=== PATIENT | female | born 1995 | race Hispanic/Latino ===

== ENCOUNTER 2017-09-10 15:43 | Outpatient (CLI) | payer OTHER, MEDICAID ==
[2017-09-10] MEDS ORDERED: CELESTONE SOLUSPAN IM ONE ×2 (16:30→16:53)
== END 2017-09-10 17:08 | disposition home or self-care (01) ==
LOC: TRG 15:43
PROVIDERS: ATTEND Obstetrics & Gynecology
DX: O47.03 False labor before 37 completed weeks of gestation, third trimester (principal); Z3A.29 29 weeks gestation of pregnancy
CPT/HCPCS: 96372; J0702

== ENCOUNTER 2017-09-11 14:21 | Inpatient (IN) | payer OTHER, MEDICAID ==
[2017-09-11] MEDS ORDERED: LACTATED RINGERS 500 ML IV ONE (15:36)
--- NOTE | 2017-09-11 16:51 | Ultrasound Report ---
FINAL REPORT EXAM: US OB BPP WO NON-STRESS HISTORY: decreased movement TECHNIQUE: Biophysical profile PRIORS: None currently available. FINDINGS: heart rate: 137 BPM Breathin Gross Body Movements: 0 Tone: 0 Qualitative AFV: 2 IMPRESSION: Biophysical profile score 2/8. Fritz level II finding report initiated.
--- NOTE | 2017-09-11 16:54 | Ultrasound Report ---
FINAL REPORT EXAM: US OB LIMITED HISTORY: decreased movement TECHNIQUE: Transabdominal OB ultrasound. PRIORS: None currently available. FINDINGS: Single intrauterine Presentation: Cephalic. Placenta: Anterior and fundal. Grade 0. No previa. heart rate: 131 BPM. Amniotic fluid index: 9.0 cm. Within normal limits. IMPRESSION: Single live intrauterine .
[2017-09-11] MEDS ORDERED: CELESTONE SOLUSPAN IM ONE (17:00)
[2017-09-11] MEDS ORDERED: REGLAN IV ONE (17:11)
[2017-09-11] MEDS ORDERED: REGLAN ONE (17:11)
[2017-09-11] MEDS ORDERED: PITOCin/NS 20 UNIT/1000ML DRIP 20,000 MILLIUNITS/1,000 ML BAG IV ONE (17:11)
[2017-09-11] MEDS ORDERED: PEPCID IV ONE ×2 (17:12→18:00)
[2017-09-11] MEDS ORDERED: ANCEF/STERILE WATER 2 GM/20 ML 2 GM/20 ML SYRINGE IV ONE (17:12)
[2017-09-11] MEDS ORDERED: BICITRA ONE (17:12)
[2017-09-11 17:25] LABS: Basophils % (Auto) 0.8 % (0.0-1.8); Eosinophils % (Auto) 0.2 % (0.0-4.3); Hematocrit 38.3 % (30.3-42.9); Mean Corpuscular HGB Conc 34 % (30-34); Mean Corpuscular Hemoglobin 30 pg (28-32); Mean Corpuscular Volume 89 fl (79-97); Platelet Count 235 K/mm3 (140-440); Red Cell Distribution Width 13.4 % (13.2-15.2); White Blood Count 15.1 K/mm3 (4.5-11.0)
--- NOTE | 2017-09-11 17:31 | Anesthesia Consultation ---
Anesthesia Consult and Med Hx Date of service: 09/11/17 - Airway Anesthetic Teeth Evaluation: Good ROM Head & Neck: Adequate Mental/Hyoid Distance: Adequate Mallampati Class: Class III Intubation Access Assessment: Possibly Difficult - Pulmonary Exam CTA: Yes - Cardiac Exam Cardiac Exam: RRR - Pre-Operative Health Status ASA Pre-Surgery Classification: ASA3, Emergency Proposed Anesthetic Plan: Epidural, Spinal - Pulmonary Hx Asthma: No - Cardiovascular System Hx Hypertension: Yes (PIH on lebetalol) - Central Nervous System Hx Seizures: No Hx Psychiatric Problems: No - Endocrine Hx Renal Disease: No Hx Hypothyroidism: No Hx Hyperthyroidism: No - Hematic Hx Anemia: No Hx Sickle Cell Disease: No - Other Systems Hx Alcohol Use: No
--- NOTE | 2017-09-11 17:32 | Anesthesia Day of Surgery ---
Anesthesia Day of Surgery - Day of Surgery Patient Examined: Yes Patient H&P Reviewed: Yes Patient is NPO: Yes Beta Blockers: Yes
[2017-09-11] MEDS ORDERED: BICITRA PO SCH (18:00)
[2017-09-11] MEDS ORDERED: PITOCin/NS 20 UNIT/1000ML DRIP 20 UNITS/1,000 ML BAG IV SCH ×2 (18:00→19:00)
[2017-09-11] MEDS ORDERED: LACTATED RINGERS 1,000 ML IV SCH (18:00)
[2017-09-11] MEDS ORDERED: ANCEF/STERILE WATER 2 GM/20 ML 2 GM/20 ML SYRINGE IV NR (18:00)
--- NOTE | 2017-09-11 18:04 | History and Physical Report ---
History of Present Illness Date of examination: 09/11/17 Date of admission: 09/11/17 17:16 Chief complaint: decreased movements History of present illness: 21y/o @ 29+2 weeks presents with decreased movement all day. The patient is being followed for abnormal umbilical dopplers and oligohydramnios. She received IM steroids yesterday and was scheduled for her 2nd injection today. She denies leakage of fluid or vaginal bleeding. She denies any regular uterine contractions. BPP performed was 8. +2 for fluid. The patient was counseled for a delivery. Past History Past Medical History: no pertinent history Past Surgical History: no surgical history Social history: single - Obstetrical History Expected Date of Delivery: 11/25/17 Actual Gestation: 29 Week(s) 2 Day(s) : 2 Para: 1 Hx # Term Pregnancies: 0 Number of Pregnancies: 1 Spontaneous Abortions: 0 Induced : 0 Number of Living Children: 1 Medications and Allergies Allergies Allergy/AdvReac Type Severity Reaction Status Date / Time No Known Allergies Allergy Unverified 10/31/14 10:30 Active Meds: Active Medications Citric Acid/Sodium Citrate (Bicitra) 30 ml PO ONCE JERMAN Stop: 09/12/17 17:59 Last Admin: 09/11/17 17:38 Dose: 30 ml Famotidine (Pepcid) 20 mg IV ONCE ONE Stop: 09/11/17 18:01 Last Admin: 09/11/17 17:39 Dose: 20 mg Cefazolin Sodium (Ancef/Sterile Water 2 Gm/20 Ml) 2 gm in 20 mls @ 80 mls/hr IV PREOP NR PRN Reason: Protocol Stop: 09/12/17 17:59 Lactated Ringer's (Lactated Ringers) 1,000 mls @ 2,250 mls/hr IV PREOP JERMAN Stop: 09/12/17 18:27 Oxytocin/Sodium Chloride (Pitocin/Ns 20 Unit/1000ml Drip) 20 units in 1,000 mls @ 0 mls/hr IV TITR JERMAN PRN Reason: As Directed Review of Systems All systems: negative Genitourinary: no vaginal bleeding, no leakage of fluid, no contractions - Vital Signs Vital signs: Vital Signs Pulse Pulse Ox 90 93 09/11/17 14:42 09/11/17 14:42 Temp Pulse Resp BP Pulse Ox 97.8 F 88 20 142/96 96 09/11/17 17:48 09/11/17 17:54 09/11/17 17:48 09/11/17 17:48 09/11/17 17:54 - Physical Exam Breasts: Positive: deferred Cardiovascular: Regular rate Lungs: Positive: Clear to auscultation Abdomen: Positive: normal appearance Results Result Diagrams: 09/11/17 17:00 Abnormal lab results 09/11/17 Range/Units 17:00 WBC 15.1 H (4.5-11.0) K/mm3 Lymph % (Auto) 12.9 L (13.4-35.0) % [place] # 1.0 H (0.0-0.8) K/mm3 Seg Neutrophils % 79.6 H (40.0-70.0) % Seg Neutrophils # 12.1 H (1.8-7.7) K/mm3 All other labs normal. Assessment and Plan - Patient Problems (1) Decreased movement Current Visit: Yes Status: Acute Qualifiers: Fetus number: F Trimester: T Plan to address problem: patient taken for a primary delivery (2) Umbilical abnormality Current Visit: Yes Status: Acute
[2017-09-11] MEDS ORDERED: NARCAN 0.4 MG/1 ML IV PRN ×2 (18:08→19:45)
[2017-09-11] MEDS ORDERED: MILK OF MAGNESIA PO PRN (18:08)
[2017-09-11] MEDS ORDERED: TYLENOL PO PRN (18:08)
[2017-09-11] MEDS ORDERED: LANSINOH TP PRN (18:08)
[2017-09-11] MEDS ORDERED: TUCKS PAD TP PRN (18:08)
[2017-09-11] MEDS ORDERED: MYLICON PO PRN (18:08)
--- NOTE | 2017-09-11 18:08 | Procedure Note ---
OB Delivery Note - Delivery Date of Delivery: 09/11/17 Surgeon: STEPHAN ELI Estimated blood loss: 500cc - Section Preop diagnosis: other (BPP 2) Postop diagnosis: same section procedure: section, primary low transverse Disposition: PACU - Infant A at 1 minute: 8 at 5 minutes: 9 Infant Gender: Male (weight 1190gms)
--- NOTE | 2017-09-11 18:23 | Operative Report ---
Operative Report Operative Report: Date of surgery: 09/11/2017 Preoperative diagnosis: at 29+2 weeks; decreased movement; abnormal umbilical Doppler; biophysical profile of 2 out of 8 Postoperative diagnosis: Same as above Procedure: Primary low-transverse delivery Surgeon: Katelyn Man M.D. Anesthesia: Regional Estimated blood loss: 500 mL Findings: Liveborn male infant in vertex presentation with Apgars of 8 and 9 weight 1190 g Indications: 21-year-old at 29+2 weeks who presents to labor and delivery triage with decreased movement. The patient reported the the movement had been decreased for the last 12 hours. The patient was being followed by maternal medicine secondary to abnormal umbilical Doppler studies. A biophysical profile was performed with findings of 2 out of 8. The patient received +2 score for fluid only. Procedure: The patient was taken to the operating room and given regional anesthesia without complication. She was prepped and draped in a normal sterile fashion. A Pfannenstiel skin incision was made down to layer the fascia which was nicked in the midline extended laterally with the Bovie cautery. The superior aspect of the rectus fascia was grasped with Quinter clamps x2 and the rectus muscles off sharply. This was done in inferior fashion as well. The rectus muscle midline and peritoneum entered bluntly. An Felix retractor was then inserted. A bladder blade was placed. The vesicouterine peritoneum was then entered sharply with Metzenbaum scissors. A bladder flap was created digitally. A low transverse uterine incision was then made and extended digitally. There was clear fluid upon entry into the uterine cavity. The head was delivered through the incision with fundal pressure. The cord was clamped and cut x2 and was passed off to pediatrics. The placenta was then manually extracted. The uterus was then exteriorized and cleared of clots and debris. The uterine incision was then closed in a running locked fashion with 0 Vicryl additional imbricating stitch was applied for 2 layer closure. The posterior cul-de-sac was then copiously irrigated. The uterus was replaced back into the abdomen and pelvis were the gutters were then irrigated. The Felix retractor was then removed. The peritoneum was then reapproximated with 3-0 Vicryl incorporating the rectus muscle. The fascia was then closed with 0 Vicryl in a running fashion. The subcutaneous adipose tissue was reapproximated with 3-0 Vicryl in a running fashion. The skin was then reapproximated with 3-0 Monocryl on a Grayson needle subcuticular fashion. Steri-Strips to place across the incision and a Crede procedures performed at the end of the surgery. A pressure dressing was applied to the incision. The surgery productive of a liveborn male infant with Apgars of 8 and 9 weight 1190 g. The patient was taken to the recovery room in stable condition. All sponge laps and needle counts correct x2.
[2017-09-11] MEDS ORDERED: LACTATED RINGERS 1,000 ML ONE (18:41)
[2017-09-11] MEDS ORDERED: WATER FOR IRRIG STERILE IR ONE (18:47)
[2017-09-11] MEDS ORDERED: NACL 0.9% IR ONE (18:47)
[2017-09-11] MEDS ORDERED: D5LR 1,000 ML IV SCH (19:00)
[2017-09-11] MEDS ORDERED: SODIUM CHLORIDE FLUSH SYRINGE 10 ML IV SCH (19:00)
[2017-09-11] MEDS ORDERED: NEO SYNEPHRINE ONE (19:14)
[2017-09-11] MEDS ORDERED: NACL 0.9% 100 ML ONE (19:14)
[2017-09-11] MEDS ORDERED: MORPHINE ONE (19:15)
[2017-09-11] MEDS ORDERED: ZOFRAN ONE (19:30)
[2017-09-11] MEDS ORDERED: XYLOCAINE MPF 2% ONE ×2 (19:37)
[2017-09-11] MEDS ORDERED: BENADRYL IV PRN (19:45)
[2017-09-11] MEDS ORDERED: DILAUDID IV PRN (19:45)
[2017-09-11] MEDS ORDERED: ZOFRAN IV PRN (19:45)
--- NOTE | 2017-09-11 19:48 | Post Anesthesia Evaluation ---
- Post Anesthesia Evaluation Patient Participated: Yes Airway Patent: Yes Stable Respiratory Function: Yes Temp > 96.8F: Yes Pain Manageable: Yes Adequeate Hydration: Yes Anesthesia Complications: No Block Receding Appropriately: Yes
[2017-09-11 21:18] LABS: HIV-1 Antigen p24 Non React (Non React); HIVR-1/2 Ab Non React (Non React)
[2017-09-11] MEDS: TORADOL IV PRN (23:35)
[2017-09-12 06:40] LABS: Hematocrit 31.6 % (30.3-42.9); Hemoglobin 10.9 gm/dl (10.1-14.3)
[2017-09-12] MEDS: TORADOL IV PRN (06:50)
--- NOTE | 2017-09-12 10:46 | Progress Note ---
Assessment and Plan - Patient Problems (1) Decreased movement Current Visit: Yes Status: Acute Qualifiers: Fetus number: F Trimester: T Plan to address problem: Patient doing well (2) Umbilical abnormality Current Visit: Yes Status: Acute Subjective - Subjective Date of service: 09/12/17 Interval history: Patient reports flatus. Tolerating clears. Pain well controlled. Patient reports: appetite normal, voiding normally, pain well controlled : in NICU Objective - Vital Signs Latest vital signs: Vital Signs Temp Pulse Resp BP BP BP Pulse Ox 09/12/17 07:45 97.7 F 71 20 127/90 95 09/12/17 04:32 97.3 F L 72 18 142/92 96 09/12/17 02:35 97.6 F 88 142/88 09/12/17 00:46 97.8 F 86 20 134/90 93 09/11/17 21:39 98.3 F 87 20 143/96 95 09/11/17 20:50 99 H 12 144/97 98 09/11/17 20:40 85 21 145/88 98 09/11/17 20:30 93 H 24 97 09/11/17 20:20 83 19 99 09/11/17 20:15 88 125/77 09/11/17 20:10 81 30 H 97 09/11/17 20:02 93 H 17 97 09/11/17 20:00 83 18 124/66 09/11/17 19:45 98.0 F 108 H 16 139/96 09/11/17 17:54 88 96 09/11/17 17:49 102 H 99 09/11/17 17:48 97.8 F 88 20 142/96 97 09/11/17 17:20 127 H 99 09/11/17 17:18 141 H 81 L 09/11/17 17:17 42 L 73 L 09/11/17 17:16 105 H 99 09/11/17 17:11 94 H 91 09/11/17 17:07 84 95 09/11/17 17:03 87 142/96 09/11/17 17:02 87 97 09/11/17 15:39 87 98 09/11/17 15:34 89 94 09/11/17 15:31 79 95 09/11/17 15:26 90 95 09/11/17 15:25 76 91 09/11/17 15:22 82 95 09/11/17 15:21 93 H 79 L 09/11/17 15:20 81 82 L 09/11/17 15:17 81 94 09/11/17 15:14 79 94 09/11/17 15:13 84 95 09/11/17 15:08 108 H 81 L 09/11/17 15:06 86 96 09/11/17 15:02 79 96 09/11/17 14:57 84 95 09/11/17 14:52 97 H 95 09/11/17 14:47 113 H 94 09/11/17 14:45 102 H 84 09/11/17 14:44 85 93 09/11/17 14:43 91 H 132/78 09/11/17 14:42 90 93 Intake and Output 09/11/17 09/12/17 09/12/17 22:59 06:59 14:59 Output Total 250 Balance -250 Output: Urine 250 Indwelling Catheter 250 Other: Total, Output Amount 250 Weight 100.5 kg - Exam Abdomen: Present: normal appearance, soft Incision: Present: dressed - Labs Labs: Abnormal lab results 09/11/17 Range/Units 17:00 WBC 15.1 H (4.5-11.0) K/mm3 Lymph % (Auto) 12.9 L (13.4-35.0) % [place] # 1.0 H (0.0-0.8) K/mm3 Seg Neutrophils % 79.6 H (40.0-70.0) % Seg Neutrophils # 12.1 H (1.8-7.7) K/mm3
[2017-09-12] MEDS: MOTRIN PO PRN (17:47)
[2017-09-12] MEDS: PERCOCET 5/325 PO PRN (21:45)
[2017-09-13] MEDS: MOTRIN PO PRN ×2 (00:50→06:05)
[2017-09-13] MEDS: PERCOCET 5/325 PO PRN ×3 (04:06→20:46)
--- NOTE | 2017-09-13 08:48 | Progress Note ---
Assessment and Plan A: POD#2 s/p primary section at 29 wks, morbid obesity, chronic hypertension P: Continue routine care. Anticipate discharge tomorrow. Subjective - Subjective Date of service: 09/13/17 Principal diagnosis: s/p section, chronic hypertension Interval history: Pt without complaints. Baby doing well. Patient reports: appetite normal, voiding normally, pain well controlled, flatus , ambulating normally, no dizzy ambulation, no bowel movement [place]: in NICU Objective - Vital Signs Latest vital signs: Vital Signs Temp Pulse Resp BP BP Pulse Ox 09/13/17 00:00 77 16 124/84 94 09/12/17 15:57 97.8 F 82 20 129/86 100 09/12/17 12:15 98.1 F 83 20 141/84 99 - Exam Breasts: Present: deferred Cardiovascular: Present: Regular rate Lungs: Present: Clear to auscultation Abdomen: Present: soft (obese), normal bowel sounds Uterus: Present: fundal height at umbilicus Extremities: Present: normal. Absent: tenderness Incision: Present: intact (steristrips moist )
--- NOTE | 2017-09-13 13:30 | XRay Report ---
CHEST 2 VIEWS INDICATION: Cough. COMPARISON: None similar. FINDINGS: PA and lateral chest radiographs demonstrate normal cardiomediastinal silhouette. Clear lungs. Slight mid thoracic spine degenerative spurring. Abdomen shielded. CONCLUSION: No acute disease in the chest. Thank you for the opportunity to participate in this patient's care.
[2017-09-13] MEDS: ROBITUSSIN PO PRN (22:03)
[2017-09-14] MEDS: PERCOCET 5/325 PO PRN ×2 (05:52→12:15)
[2017-09-14] MEDS: ROBITUSSIN PO PRN ×2 (05:52→12:15)
[2017-09-14] MEDS ORDERED: PROVENTIL IH PRN (08:00)
[2017-09-14] MEDS ORDERED: PROVENTIL IH ONE (08:58)
--- NOTE | 2017-09-14 10:53 | Discharge Summary ---
Providers - Providers Date of Admission: 09/11/17 17:16 Date of discharge: 09/14/17 Attending physician: STEPHAN ELI Primary care physician: STEPHAN ELI Hospitalization Reason for admission: other (Decreased movement, BPP 2/8) Delivery: Procedure: section, primary low transverse Procedure details: Please see operative note. Incision: intact Other procedures: none complications: none Discharge diagnosis: delivery [place] baby: male Hospital course: Pt underwent primary section which she tolerated well. Her postoperative course was uncomplicated and the patient met discharge criteria on POD#3/ At home, she will resume her labetalol 100 mg twice daily and she will follow up in 1 week for a blood pressure check. Condition at discharge: Stable Disposition: DC-01 TO HOME OR SELFCARE - Discharge Diagnoses (1) Morbid obesity Status: Acute (2) Chronic hypertension affecting Status: Acute (3) S/P section Status: Acute (4) Decreased movement Status: Acute Qualifiers: Fetus number: single or unspecified fetus Trimester: third trimester Qualified Code(s): O36.8130 - Decreased movements, third trimester, not applicable or unspecified (5) Umbilical abnormality Status: Acute Plan - Discharge Medications Prescriptions: Docusate Sodium [Colace] 100 mg PO BID PRN #60 capsule PRN Reason: Constipation Ibuprofen [Motrin] 800 mg PO Q8HR PRN #60 tablet PRN Reason: Pain Oxycodone HCl/Acetaminophen [Percocet 7.5/325 mg] 1 each PO Q6HR PRN #45 tablet PRN Reason: Pain - Provider Discharge Summary Activity: routine, no sex for 6 weeks, no heavy lifting 4 weeks, no strenuous exercise Diet: routine Instructions: routine Additional instructions: [] Smoking cessation referral if applicable(refer to patient education folder for contact #) [] Refer to [facility]'s [facility] Booklet Call your doctor immediately for: * Fever > 100.5 * Heavy vaginal bleeding ( >1 pad per hour) * Severe persistent headache * Shortness of breath * Reddened, hot, painful area to leg or breast * Drainage or odor from incision. * Keep incision clean and dry at all times and follow doctor's instructions regarding bathing/showering - Follow up plan Follow up: MEENU HULL MD [Staff Physician] - 09/21/17 (blood pressure check. Please also schedule [address] Smith for incision check. )
[2017-09-14 18:36] VITALS: BP 131/82
== END 2017-09-14 15:00 | disposition home or self-care (01) | DRG 765 ==
LOC: TRG 14:21 → APU 17:16 → OB 22:25
PROVIDERS: ADMIT Obstetrics & Gynecology; ATTEND Obstetrics & Gynecology
PROC: 10D00Z1 Extraction of Products of Conception, Low, Open Approach (ICD-10-PCS; principal; 2017-09-11)
PROC: 30233S1 Transfusion of Nonautologous Globulin into Peripheral Vein, Percutaneous Approach (ICD-10-PCS; 2017-09-13)
DX: O36.8130 Decreased fetal movements, third trimester, not applicable or unspecified (principal); O60.14X0 Preterm labor third trimester with preterm delivery third trimester, not applicable or unspecified; O10.92 Unspecified pre-existing hypertension complicating childbirth; O41.03X0 Oligohydramnios, third trimester, not applicable or unspecified; Z68.41 Body mass index [BMI] 40.0-44.9, adult; O99.214 Obesity complicating childbirth; E66.01 Morbid (severe) obesity due to excess calories; O69.9XX0 Labor and delivery complicated by cord complication, unspecified, not applicable or unspecified; Z3A.29 29 weeks gestation of pregnancy; Z37.0 Single live birth; Q27.0 Congenital absence and hypoplasia of umbilical artery
CPT/HCPCS: 36415; 71020; 76815; 76819; 85014; 85018; 85025; 85460; 85461; 86592; 86706; 86850; 86900; 86901; 87806; 88307; 94640; 99211; G0463; J0690; J0702; J1200; J1885; J2270; J2370; J2405; J2590; J2765; J2790; J7120; J7121

== ENCOUNTER 2020-06-21 01:50 | Emergency (ER) | payer MEDICAID, OTHER ==
[2020-06-21] MEDS ORDERED: dexAMETHasone 20 MG/5 ML VIAL IM ONE (06:03)
[2020-06-21] MEDS ORDERED: FAMOTIDINE 20 MG TAB PO ONE (06:03)
[2020-06-21] MEDS ORDERED: hydrOXYzine PAMOATE 25 MG CAP PO ONE (06:03)
--- NOTE | 2020-06-21 06:22 | Emergency Department Report ---
ED General Adult HPI - General Chief complaint: Skin Rash Stated complaint: RASH ON FACE Source: patient Mode of arrival: Ambulatory Limitations: No Limitations - History of Present Illness Initial comments: Patient is a 24-year-old female with a history of hypertension who presents to the ED with complaint of acute onset persistent itchy diffuse facial erythematous maculopapular urticarial rashes for the last 2 days despite taking Benadryl. Patient states that in the last 12 hours the erythema and the itching has worsened. Patient states that she has been using [id number] Benadryl and other medications with no relief. Patient states that she could not sleep tonight because of worsening itching of the face. Patient denies swollen lips or tongue, insect bite, use of any cream or detergent on the face that is new, fever, chills, cough, nasal and sinus congestion, dizziness, syncope, sore throat, swollen lips or tongue, swollen throat, dysphagia, dysphonia, nasal and sinus congestion, swollen face, cough, wheezing, shortness of breath, chest pain, nausea and vomiting or abdominal pain and diarrhea. MD Complaint: Diffuse erythematous facial itchy rashes -: Sudden, days(s) (2) Location: face Radiation: non-radiation Severity scale (0 -10): 5 Quality: burning, aching, constant Consistency: constant Improves with: none Worsens with: none Associated Symptoms: denies other symptoms, rash (Diffuse erythematous maculopapular urticarial facial rashes). denies: confusion, chest pain, cough, diaphoresis, fever/chills, loss of appetite, malaise, nausea/vomiting, seizure, shortness of breath, syncope, weakness, other Treatments Prior to Arrival: other (Benadryl) - Related Data Previous Rx's Medication Instructions Recorded Last Taken Type Docusate Sodium [Colace] 100 mg PO BID PRN #60 capsule 09/12/17 Unknown Rx Ibuprofen [Motrin] 800 mg PO Q8HR PRN #60 tablet 09/12/17 Unknown Rx Oxycodone HCl/Acetaminophen 1 each PO Q6HR PRN #45 tablet 09/12/17 Unknown Rx [Percocet 7.5/325 mg] Famotidine [Pepcid] 20 mg PO Q12H #60 tablet 06/21/20 Unknown Rx Prednisone [predniSONE 10 mg 10 mg PO .TAPER #21 tab.ds.pk 06/21/20 Unknown Rx (6-Day Pack, 21 Tabs)] Triamcinolone Acetonide 1 applic TP Q12H #1 tube 06/21/20 Unknown Rx hydrOXYzine PAMOATE [Vistaril] 50 mg PO Q6HR PRN #30 capsule 06/21/20 Unknown Rx Allergies Allergy/AdvReac Type Severity Reaction Status Date / Time No Known Allergies Allergy Unverified 10/31/14 10:30 ED Review of Systems ROS: Stated complaint: RASH ON FACE Other details as noted in HPI Constitutional: denies: chills, fever Eyes: denies: eye pain, eye discharge, vision change ENT: other (diffuse facial erythematous maculopapular urticarial rashes). denies: ear pain, throat pain Respiratory: denies: cough, shortness of breath, wheezing Cardiovascular: denies: chest pain, palpitations Endocrine: no symptoms reported Gastrointestinal: denies: abdominal pain, nausea, diarrhea Genitourinary: denies: urgency, dysuria, discharge Musculoskeletal: denies: back pain, joint swelling, arthralgia Skin: rash (diffuse facial erythematous maculopapular rashes), change in color, pruritus. denies: lesions Neurological: denies: headache, weakness, paresthesias Psychiatric: denies: anxiety, depression Hematological/Lymphatic: denies: easy bleeding, easy bruising ED Past Medical Hx - Past Medical History Previous Medical History?: Yes Hx Hypertension: Yes (in preg only) Hx Congestive Heart Failure: No Hx Diabetes: No Hx Deep Vein Thrombosis: No Hx Renal Disease: No Hx Sickle Cell Disease: No Hx Seizures: No Hx Asthma: No Hx COPD: No Hx HIV: No - Surgical History Past Surgical History?: Yes Additional Surgical History: x1 - Social History Smoking Status: Never Smoker Substance Use Type: None - Medications Home Medications: Home Medications Medication Instructions Recorded Confirmed Last Taken Type Docusate Sodium [Colace] 100 mg PO BID PRN #60 capsule 09/12/17 Unknown Rx Ibuprofen [Motrin] 800 mg PO Q8HR PRN #60 tablet 09/12/17 Unknown Rx Oxycodone HCl/Acetaminophen 1 each PO Q6HR PRN #45 tablet 09/12/17 Unknown Rx [Percocet 7.5/325 mg] Famotidine [Pepcid] 20 mg PO Q12H #60 tablet 06/21/20 Unknown Rx Prednisone [predniSONE 10 mg 10 mg PO .TAPER #21 tab.ds.pk 06/21/20 Unknown Rx (6-Day Pack, 21 Tabs)] Triamcinolone Acetonide 1 applic TP Q12H #1 tube 06/21/20 Unknown Rx hydrOXYzine PAMOATE [Vistaril] 50 mg PO Q6HR PRN #30 capsule 06/21/20 Unknown Rx ED Physical Exam - General Limitations: No Limitations General appearance: alert, in no apparent distress - Head Head exam: Present: atraumatic, normocephalic, normal inspection - Eye Eye exam: Present: normal appearance, PERRL, EOMI Pupils: Present: normal accommodation - ENT ENT exam: Present: normal exam, normal orophraynx, mucous membranes moist, TM's normal bilaterally, normal external ear exam, other (Diffuse facial erythematous maculopapular with the current rashes) - Neck Neck exam: Present: normal inspection, full ROM. Absent: tenderness - Respiratory Respiratory exam: Present: normal lung sounds bilaterally. Absent: respiratory distress, wheezes, rales, rhonchi, chest wall tenderness, accessory muscle use - Cardiovascular Cardiovascular Exam: Present: normal rhythm, tachycardia, normal heart sounds. Absent: systolic murmur, diastolic murmur, rubs, gallop - GI/Abdominal GI/Abdominal exam: Present: soft, normal bowel sounds. Absent: tenderness, guarding, rebound, hyperactive bowel sounds, organomegaly - Extremities Exam Extremities exam: Present: normal inspection, full ROM, normal capillary refill - Back Exam Back exam: Present: normal inspection, full ROM. Absent: tenderness, CVA tenderness (R), CVA tenderness (L), muscle spasm, vertebral tenderness - Neurological Exam Neurological exam: Present: alert, oriented X3, CN II-XII intact, normal gait, reflexes normal - Psychiatric Psychiatric exam: Present: normal affect, normal mood, anxious - Skin Skin exam: Present: warm, dry, intact, rash (Diffuse erythematous maculopapular urticarial facial rashes), erythema, urticaria ED Course Vital Signs 06/21/20 06/21/20 02:26 06:52 Temperature 98.6 F 98.1 F Pulse Rate 112 H 92 H Respiratory 20 18 Rate Blood Pressure 155/97 Blood Pressure 127/80 [Left] O2 Sat by Pulse 96 99 Oximetry ED Medical Decision Making - Medical Decision Making This is a 24-year-old female with a history of hypertension who presents to the ED with complaint of acute onset persistent itchy diffuse facial erythematous maculopapular urticarial rashes for the last 2 days despite taking Benadryl. Patient states that in the last 12 hours the erythema and the itching has worsened. Patient states that she has been using [id number] Benadryl and other medications with no relief. Patient states that she could not sleep tonight because of worsening itching of the face. In the ED, patient is alert and oriented x3 and is not in any distress but tachycardic in triage and anxious. Patient was treated for acute allergic reaction with steroids and oral Vistaril as well as Pepcid. On reevaluation, patient's itching improved significantly. Patient was discharged home on both oral and topical steroids, Vistaril and Pepcid. Patient was advised to follow-up with her primary care physician in 3 to 5 days for reevaluation or return to the ED immediately if symptoms get worse. - Differential Diagnosis urticaria; contact dermatitis; irritant dermatitis; allergic reaction Critical care attestation.: If time is entered above; I have spent that time in minutes in the direct care of this critically ill patient, excluding procedure time. ED Disposition Clinical Impression: Irritant dermatitis, Itching with irritation Acute allergic reaction Qualifiers: Encounter type: initial encounter Qualified Code(s): T78.40XA - Allergy, unspecified, initial encounter Disposition: DC- TO HOME OR SELFCARE Is pt being admited?: No Does the pt Need Aspirin: No Condition: Stable Instructions: Contact Dermatitis (ED), Urticaria (ED), Allergies (ED), Itchy Skin (ED) Additional Instructions: Take medication with food, drink plenty of fluids and follow-up with your primary care physician in 5 to 7 days for reevaluation. Return to the ED immediately if symptoms get worse. Prescriptions: Famotidine [Pepcid] 20 mg PO Q12H #60 tablet Prednisone [predniSONE 10 mg (6-Day Pack, 21 Tabs)] 10 mg PO .TAPER #21 tab.ds.pk Triamcinolone Acetonide 1 applic TP Q12H #1 tube hydrOXYzine PAMOATE [Vistaril] 50 mg PO Q6HR PRN #30 capsule PRN Reason: Itching Referrals: [facility] [Provider Group] - 3-5 Days Time of Disposition: 06:16 Print Language: MEXICAN
[2020-06-21 06:52] VITALS: BP 127/80
== END 2020-06-21 06:52 | disposition home or self-care (01) ==
LOC: ED 01:50
DX: T45.0X5A Adverse effect of antiallergic and antiemetic drugs, initial encounter (principal); L24.9 Irritant contact dermatitis, unspecified cause; L29.9 Pruritus, unspecified; I10 Essential (primary) hypertension; Z98.890 Other specified postprocedural states; Z79.899 Other long term (current) drug therapy; Y92.89 Other specified places as the place of occurrence of the external cause
CPT/HCPCS: 96372; 99282; J1100; Q0177

== ENCOUNTER 2020-10-05 15:42 | Emergency (ER) | payer SELFPAY ==
[2020-10-05] MEDS ORDERED: dexAMETHasone 20 MG/5 ML VIAL IM ONE (17:14)
[2020-10-05] MEDS ORDERED: diphenhydrAMINE 25 MG CAP PO ONE (17:14)
[2020-10-05] MEDS ORDERED: FAMOTIDINE 20 MG TAB PO ONE (17:14)
--- NOTE | 2020-10-05 17:15 | Emergency Department Report ---
- General Chief complaint: Skin Rash Stated complaint: RASH ON FACE Time Seen by Provider: 10/05/20 17:12 Source: patient Mode of arrival: Ambulatory Limitations: No Limitations - History of Present Illness Initial comments: Patient is a 24-year-old female presents emergency room complaints of a rash to the face that is spreading onto the neck that began 3 days ago. She states that she has been taking Benadryl and the last time she took it was last night. She states that it does itch. She denies any new soaps, detergents, lotions, putting anything on her face, medications. She was evaluated in the emergency department in June 2020 for the exact same rash and he states that her rash completely resolved after receiving medications but she did not follow-up with anyone. She denies any facial swelling, difficulty swallowing, difficulty breathing, shortness of breath. She denies any past medical history. She denies any known allergies. she denies any recent abx. - Related Data Previous Rx's Medication Instructions Recorded Last Taken Type Docusate Sodium [Colace] 100 mg PO BID PRN #60 capsule 09/12/17 Unknown Rx Ibuprofen [Motrin] 800 mg PO Q8HR PRN #60 tablet 09/12/17 Unknown Rx Oxycodone HCl/Acetaminophen 1 each PO Q6HR PRN #45 tablet 09/12/17 Unknown Rx [Percocet 7.5/325 mg] Famotidine [Pepcid] 20 mg PO Q12H #20 tablet 10/05/20 Unknown Rx Prednisone [predniSONE 10 mg 10 mg PO .TAPER #21 tab.ds.pk 10/05/20 Unknown Rx (6-Day Pack, 21 Tabs)] Triamcinolone Acetonide 1 applic TP Q12H 10 Days #1 tube 10/05/20 Unknown Rx hydrOXYzine PAMOATE [Vistaril] 50 mg PO Q6HR PRN #20 capsule 10/05/20 Unknown Rx Allergies Allergy/AdvReac Type Severity Reaction Status Date / Time No Known Allergies Allergy Unverified 10/31/14 10:30 Abscess Boil HPI - HPI Chief Complaint: Skin Rash Stated Complaint: RASH ON FACE Time Seen by Provider: 10/05/20 17:12 Home Medications: Previous Rx's Medication Instructions Recorded Last Taken Type Docusate Sodium [Colace] 100 mg PO BID PRN #60 capsule 09/12/17 Unknown Rx Ibuprofen [Motrin] 800 mg PO Q8HR PRN #60 tablet 09/12/17 Unknown Rx Oxycodone HCl/Acetaminophen 1 each PO Q6HR PRN #45 tablet 09/12/17 Unknown Rx [Percocet 7.5/325 mg] Famotidine [Pepcid] 20 mg PO Q12H #20 tablet 10/05/20 Unknown Rx Prednisone [predniSONE 10 mg 10 mg PO .TAPER #21 tab.ds.pk 10/05/20 Unknown Rx (6-Day Pack, 21 Tabs)] Triamcinolone Acetonide 1 applic TP Q12H 10 Days #1 tube 10/05/20 Unknown Rx hydrOXYzine PAMOATE [Vistaril] 50 mg PO Q6HR PRN #20 capsule 10/05/20 Unknown Rx Allergies/Adverse Reactions: Allergies Allergy/AdvReac Type Severity Reaction Status Date / Time No Known Allergies Allergy Unverified 10/31/14 10:30 ED Review of Systems ROS: Stated complaint: RASH ON FACE Other details as noted in HPI Comment: All other systems reviewed and negative ED Past Medical Hx - Past Medical History Previous Medical History?: Yes Hx Hypertension: Yes (in preg only) Hx Congestive Heart Failure: No Hx Diabetes: No Hx Deep Vein Thrombosis: No Hx Renal Disease: No Hx Sickle Cell Disease: No Hx Seizures: No Hx Asthma: No Hx COPD: No Hx HIV: No - Surgical History Past Surgical History?: Yes Additional Surgical History: x1 - Social History Smoking Status: Never Smoker Substance Use Type: None - Medications Home Medications: Home Medications Medication Instructions Recorded Confirmed Last Taken Type Docusate Sodium [Colace] 100 mg PO BID PRN #60 capsule 09/12/17 Unknown Rx Ibuprofen [Motrin] 800 mg PO Q8HR PRN #60 tablet 09/12/17 Unknown Rx Oxycodone HCl/Acetaminophen 1 each PO Q6HR PRN #45 tablet 09/12/17 Unknown Rx [Percocet 7.5/325 mg] Famotidine [Pepcid] 20 mg PO Q12H #20 tablet 10/05/20 Unknown Rx Prednisone [predniSONE 10 mg 10 mg PO .TAPER #21 tab.ds.pk 10/05/20 Unknown Rx (6-Day Pack, 21 Tabs)] Triamcinolone Acetonide 1 applic TP Q12H 10 Days #1 tube 10/05/20 Unknown Rx hydrOXYzine PAMOATE [Vistaril] 50 mg PO Q6HR PRN #20 capsule 10/05/20 Unknown Rx ED Physical Exam - General Limitations: No Limitations General appearance: alert, in no apparent distress - Head Head exam: Present: atraumatic - Eye Eye exam: Present: normal appearance - ENT ENT exam: Present: normal orophraynx, mucous membranes moist, other (no angioedema) - Respiratory Respiratory exam: Present: normal lung sounds bilaterally. Absent: respiratory distress, wheezes, rales, rhonchi, stridor, chest wall tenderness, accessory muscle use, decreased breath sounds, prolonged expiratory - Neurological Exam Neurological exam: Present: alert, oriented X3 - Psychiatric Psychiatric exam: Present: normal affect, normal mood - Skin Skin exam: Present: warm, dry, rash (erythematous macular papular rash present to the face and anterior neck, no scaling, no crusting, no necrosis, no blistering, no skin denuding) ED Course Vital Signs 10/05/20 10/05/20 16:00 18:25 Temperature 98.3 F Pulse Rate 74 83 Respiratory 18 Rate Blood Pressure 150/101 141/92 O2 Sat by Pulse 100 100 Oximetry ED Medical Decision Making - Lab Data Vital Signs 10/05/20 10/05/20 16:00 18:25 Temperature 98.3 F Pulse Rate 74 83 Respiratory 18 Rate Blood Pressure 150/101 141/92 O2 Sat by Pulse 100 100 Oximetry - Medical Decision Making Patient is a 24-year-old female presents emergency room complaints of a rash to the face that is spreading onto the neck that began 3 days ago. She states that she has been taking Benadryl and the last time she took it was last night. She states that it does itch. She denies any new soaps, detergents, lotions, putting anything on her face, medications. She was evaluated in the emergency department in June 2020 for the exact same rash and he states that her rash completely resolved after receiving medications but she did not follow-up with anyone. She denies any facial swelling, difficulty swallowing, difficulty breathing, shortness of breath. She denies any past medical history. She denies any known allergies. she denies any recent abx. VSS. on exam: erythematous macular papular rash present to the face and anterior neck, no scaling, no crusting, no necrosis, no blistering, no skin denuding. No signs of angioedema or anaphylaxis. Patient given Pepcid, Benadryl, dexamethasone IM and patient states that she was feeling much better and states that the itching has improved, she was observed while in the emergency department and had no further complications. Patient given prescription for Pepcid, prednisone, hydroxyzine, triamcinolone. Advised patient Please use medication as prescribed. Follow-up with a primary care doctor. You will likely need to be referred to a director of operations by the primary care physician. Return to emergency room immediately for any new or worsening symptoms. Critical care attestation.: If time is entered above; I have spent that time in minutes in the direct care of this critically ill patient, excluding procedure time. ED Disposition Clinical Impression: Facial rash Disposition: DC- TO HOME OR SELFCARE Is pt being admited?: No Does the pt Need Aspirin: No Condition: Stable Instructions: Contact Dermatitis, Pcgd-hr-Munn Additional Instructions: Please use medication as prescribed. Follow-up with a primary care doctor. You will likely need to be referred to a director of operations by the primary care physician. Return to emergency room immediately for any new or worsening symptoms. Prescriptions: Famotidine [Pepcid] 20 mg PO Q12H #20 tablet Prednisone [predniSONE 10 mg (6-Day Pack, 21 Tabs)] 10 mg PO .TAPER #21 tab.ds.pk Triamcinolone Acetonide 1 applic TP Q12H 10 Days #1 tube hydrOXYzine PAMOATE [Vistaril] 50 mg PO Q6HR PRN #20 capsule PRN Reason: Itching Referrals: JOSE VEGA MD [Staff Physician] - 3-5 Days [facility] [Provider Group] - 3-5 Days [facility], [LAB/CONTRACT] - 3-5 Days Time of Disposition: 18:11 Print Language: KAZAKH
[2020-10-05 18:29] VITALS: BP 141/92
== END 2020-10-05 18:50 | disposition home or self-care (01) ==
LOC: ED 15:42
DX: R21 Rash and other nonspecific skin eruption (principal); I10 Essential (primary) hypertension; Z79.899 Other long term (current) drug therapy
CPT/HCPCS: 96372; 99282; J1100

== ENCOUNTER 2021-03-29 00:11 | Emergency (ER) | payer SELFPAY ==
[2021-03-29 00:32] VITALS: BP 134/95
--- NOTE | 2021-03-29 00:46 | Emergency Department Report ---
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 She reports minimal pain but is worried because she has discovered 2 days ago that she is and wants to evaluate the status of her . She reports no vaginal bleeding, no fever, chills, sweats, no vaginal discharge no dysuria or hematuria. MD Complaint: fall -: Gradual - Related Data Previous Rx's Medication Instructions Recorded Last Taken Type Docusate Sodium [Colace] 100 mg PO BID PRN #60 capsule 09/12/17 Unknown Rx Ibuprofen [Motrin] 800 mg PO Q8HR PRN #60 tablet 09/12/17 Unknown Rx Oxycodone HCl/Acetaminophen 1 each PO Q6HR PRN #45 tablet 09/12/17 Unknown Rx [Percocet 7.5/325 mg] Famotidine [Pepcid] 20 mg PO Q12H #20 tablet 10/05/20 Unknown Rx Prednisone [predniSONE 10 mg 10 mg PO .TAPER #21 tab.ds.pk 10/05/20 Unknown Rx (6-Day Pack, 21 Tabs)] Triamcinolone Acetonide 1 applic TP Q12H 10 Days #1 tube 10/05/20 Unknown Rx hydrOXYzine PAMOATE [Vistaril] 50 mg PO Q6HR PRN #20 capsule 10/05/20 Unknown Rx Allergies Allergy/AdvReac Type Severity Reaction Status Date / Time No Known Allergies Allergy Unverified 10/31/14 10:30 ED Review of Systems ROS: Stated complaint: 5 WEEKS ;FELL ON STOMACH Other details as noted in HPI Comment: All other systems reviewed and negative ED Past Medical Hx - Past Medical History Previous Medical History?: Yes Hx Hypertension: Yes (in preg only) Hx Congestive Heart Failure: No Hx Diabetes: No Hx Deep Vein Thrombosis: No Hx Renal Disease: No Hx Sickle Cell Disease: No Hx Seizures: No Hx Asthma: No Hx COPD: No Hx HIV: No - Surgical History Past Surgical History?: Yes Additional Surgical History: x1 - Social History Smoking Status: Never Smoker Substance Use Type: Alcohol - Medications Home Medications: Home Medications Medication Instructions Recorded Confirmed Last Taken Type Docusate Sodium [Colace] 100 mg PO BID PRN #60 capsule 09/12/17 Unknown Rx Ibuprofen [Motrin] 800 mg PO Q8HR PRN #60 tablet 09/12/17 Unknown Rx Oxycodone HCl/Acetaminophen 1 each PO Q6HR PRN #45 tablet 09/12/17 Unknown Rx [Percocet 7.5/325 mg] Famotidine [Pepcid] 20 mg PO Q12H #20 tablet 10/05/20 Unknown Rx Prednisone [predniSONE 10 mg 10 mg PO .TAPER #21 tab.ds.pk 10/05/20 Unknown Rx (6-Day Pack, 21 Tabs)] Triamcinolone Acetonide 1 applic TP Q12H 10 Days #1 tube 10/05/20 Unknown Rx hydrOXYzine PAMOATE [Vistaril] 50 mg PO Q6HR PRN #20 capsule 10/05/20 Unknown Rx ED Physical Exam - General Limitations: No Limitations General appearance: alert, in no apparent distress - Head Head exam: Present: atraumatic, normocephalic - Eye Eye exam: Present: normal appearance, PERRL, EOMI Pupils: Present: normal accommodation - ENT ENT exam: Present: normal exam, normal orophraynx, mucous membranes moist, TM's normal bilaterally - Neck Neck exam: Present: normal inspection - Respiratory Respiratory exam: Present: normal lung sounds bilaterally. Absent: respiratory distress - Cardiovascular Cardiovascular Exam: Present: regular rate, normal rhythm. Absent: systolic murmur, diastolic murmur, rubs, gallop - GI/Abdominal GI/Abdominal exam: Present: soft, normal bowel sounds - Extremities Exam Extremities exam: Present: normal inspection - Back Exam Back exam: Present: normal inspection - Neurological Exam Neurological exam: Present: alert, oriented X3 - Psychiatric Psychiatric exam: Present: normal affect, normal mood - Skin Skin exam: Present: warm, dry, intact, normal color. Absent: rash ED Course Vital Signs 03/29/21 00:30 Temperature 98.8 F Pulse Rate 104 H Respiratory 18 Rate Blood Pressure 134/95 O2 Sat by Pulse 99 Oximetry ED Medical Decision Making - Lab Data Result diagrams: 03/29/21 00:43 - Radiology Data Radiology results: report reviewed [address] [place] [address] Ultrasound Report Signed Patient: WILLIS FLEMING MR#: [id number] : 1995 Acct:[id number] Age/Sex: 25 / F ADM Date: 03/29/21 Loc: ED Attending Dr: Ordering Physician: MARITZA AGARWAL Date of Service: 03/29/21 Procedure(s): US OB transvaginal Accession Number(s): [id number] cc: MARITZA AGARWAL ULTRASOUND OBSTETRIC INDICATION: First trimester , history of fall. TECHNIQUE: Transabdominal and Transvaginal. COMPARISON: None available. FINDINGS: Transabdominal imaging is limited by the patient's body habitus. GESTATIONAL SAC: None seen. YOLK SAC: None seen. EMBRYO/FETUS: None seen. ADNEXA: No significant abnormality. FREE FLUID: None. ADDITIONAL FINDINGS: None. IMPRESSION: 1. No sonographic visualization of an intrauterine or ectopic . 2. No acute abnormalities. Signer Name: Kehinde Whitley MD Signed: 03/29/2021 2:58 AM Workstation Name: [id number] Transcribed By: [place] Dictated By: Kehinde Whitley MD Electronically Authenticated By: Kehinde Whitley MD Signed Date/Time: 03/29/21257 DD/ 6 TD/TT: Print Cancel - Medical Decision Making 25-year-old female with reported status post slip and fall presents emerge department for evaluation. Pain is vague pain to the suprapubic region but at best. Ultrasound does not confirm any intrauterine or ectopic however her hCG quant is just over 600 at the range would be very difficult to a from a visible stent advised patient to have a follow-up hCG in 3 to 5 days. Critical care attestation.: If time is entered above; I have spent that time in minutes in the direct care of this critically ill patient, excluding procedure time. ED Disposition Clinical Impression: Fall Disposition: DC-01 TO HOME OR SELFCARE Is pt being admited?: No Does the pt Need Aspirin: No Condition: Stable Instructions: Abdominal Pain (ED), Preventing Injuries During , [id number], Preventing Injuries During Additional Instructions: Your hCG quant is elevated which occurs with however the number is lower left to with the cannot be confirmed visibly on ultrasound at this present time. Will need to have a follow-up hCG in 3 to 5 days for further evaluation of the and consider repeat ultrasound in 1 to 2 weeks Referrals: PRIMARY CAREMD [Primary Care Provider] - 3-5 Days [facility] [Provider Group] - 3-5 Days [facility] [Provider Group] - 3-5 Days
[2021-03-29 01:11] LABS: Basophils % (Auto) 0.5 % (0.0-1.8); Eosinophils # (Auto) 0.1 K/mm3 (0.0-0.4); Eosinophils % (Auto) 1.6 % (0.0-4.3); Hematocrit 41.1 % (30.3-42.9); Hemoglobin 14.1 gm/dl (10.1-14.3); Lymphocytes # (Auto) 2.8 K/mm3 (1.2-5.4); Lymphocytes % (Auto) 34.5 % (13.4-35.0); Mean Corpuscular HGB Conc 34 % (30-34); Mean Corpuscular Volume 83 fl (79-97); Monocytes # (Auto) 0.6 K/mm3 (0.0-0.8); Monocytes % (Auto) 7.7 % (0.0-7.3); Platelet Count 251 K/mm3 (140-440); Red Blood Count 4.98 M/mm3 (3.65-5.03); Red Cell Distribution Width 13.8 % (13.2-15.2)
--- NOTE | 2021-03-29 03:03 | Ultrasound Report ---
ULTRASOUND OBSTETRIC INDICATION: First trimester , history of fall. TECHNIQUE: Transabdominal and Transvaginal. COMPARISON: None available. FINDINGS: Transabdominal imaging is limited by the patient's body habitus. GESTATIONAL SAC: None seen. YOLK SAC: None seen. EMBRYO/FETUS: None seen. ADNEXA: No significant abnormality. FREE FLUID: None. ADDITIONAL FINDINGS: None. IMPRESSION: 1. No sonographic visualization of an intrauterine or ectopic . 2. No acute abnormalities. Signer Name: Kehinde Whitley MD Signed: 03/29/2021 2:58 AM Workstation Name: [id number]
== END 2021-03-29 07:00 | disposition home or self-care (01) ==
LOC: ED 00:11
DX: O26.891 Other specified pregnancy related conditions, first trimester (principal); R10.2 Pelvic and perineal pain; I10 Essential (primary) hypertension; Z3A.01 Less than 8 weeks gestation of pregnancy; Z98.890 Other specified postprocedural states; Z79.1 Long term (current) use of non-steroidal anti-inflammatories (NSAID); Z79.899 Other long term (current) drug therapy; W01.0XXA Fall on same level from slipping, tripping and stumbling without subsequent striking against object, initial encounter; Y93.89 Activity, other specified; Y92.89 Other specified places as the place of occurrence of the external cause; Y99.8 Other external cause status
CPT/HCPCS: 36415; 76801; 76817; 84702; 85025

== ENCOUNTER 2021-08-12 14:05 | Outpatient (CLI) | payer OTHER ==
[2021-08-12 14:27] VITALS: BP 131/76
== END 2021-08-12 15:16 | disposition home or self-care (01) ==
LOC: TRG 14:05 → APU 14:07 → TRG 15:16
PROVIDERS: ATTEND Obstetrics & Gynecology
DX: O26.892 Other specified pregnancy related conditions, second trimester (principal); Z3A.24 24 weeks gestation of pregnancy
CPT/HCPCS: 59025

== ENCOUNTER 2021-09-29 18:00 | Outpatient (CLI) | payer OTHER ==
[2021-09-29 19:42] VITALS: BP 119/73
[2021-09-29] MEDS ORDERED: ONDANSETRON 4 MG/2 ML INJ IV PRN (20:00)
[2021-09-29] MEDS ORDERED: LACTATED RINGERS 1,000 ML IV ONE (20:30)
[2021-09-29 20:31] LABS: Bilirubin,Urine NEG (Negative); Blood,Urine NEG (Negative); Color,Urine Yellow (Yellow); Mucus,Urine FEW /HPF; Protein,Urine <15 mg/dL mg/dL (Negative); Urobilinogen,Urine < 2.0 mg/dL (<2.0)
== END 2021-09-29 21:33 | disposition home or self-care (01) ==
LOC: TRG 18:00 → APU 18:03 → TRG 21:33
PROVIDERS: ATTEND Obstetrics & Gynecology
DX: Z34.93 Encounter for supervision of normal pregnancy, unspecified, third trimester (principal); Z3A.30 30 weeks gestation of pregnancy
CPT/HCPCS: 81001; J2405; J7120; J3490

== ENCOUNTER 2021-10-21 14:08 | Outpatient (CLI) | payer OTHER | END 2021-10-21 17:14 | disposition home or self-care (01) | LOC: LAB 14:08 → APU 17:04 → LAB 17:14 | PROVIDERS: ATTEND Obstetrics & Gynecology | DX: O26.893 Other specified pregnancy related conditions, third trimester (principal); Z67.11 Type A blood, Rh negative; Z3A.34 34 weeks gestation of pregnancy | CPT/HCPCS: 86850; 86900; 86901; 96372; J2790 ==